=== PATIENT | male | born 1985 | race Caucasian/White ===

== ENCOUNTER 2017-12-09 21:51 | Emergency (ER) | payer SELFPAY ==
[~2017-12-09] VITALS: Ht 175.3 cm; Wt 126.5 kg
[2017-12-09 22:19] VITALS: Ht 175.3 cm; Wt 126.5 kg
[2017-12-10 00:44] VITALS: BP 137/94
== END 2017-12-10 00:44 | disposition home or self-care (01) ==
LOC: ED 21:51
DX: L60.0 Ingrowing nail (principal)
CPT/HCPCS: J2001

== ENCOUNTER 2019-08-16 01:17 | Emergency (ER) | payer SELFPAY ==
[~2019-08-16] VITALS: Ht 175.3 cm; Wt 125.9 kg
[2019-08-16 01:24] VITALS: Ht 175.3 cm; Wt 125.9 kg
[2019-08-16 05:12] VITALS: BP 150/82
== END 2019-08-16 05:12 | disposition home or self-care (01) ==
LOC: ED 01:17
DX: J11.1 Influenza due to unidentified influenza virus with other respiratory manifestations (principal)
CPT/HCPCS: 87804; J7120

== ENCOUNTER 2020-06-10 02:52 | Inpatient (IN) | payer SELFPAY ==
[~2020-06-10] VITALS: Ht 175.3 cm; Wt 127.9 kg
[2020-06-10 03:01] VITALS: Ht 175.3 cm; Wt 127.9 kg
[2020-06-10 04:00] LABS: BASOPHIL % 1.4 % (0-2); PLATELET COUNT 256 x10^3mcL (130-400); RED CELL DISTRIBUTION WIDTH 13.1 % (11.5-14.5)
[2020-06-10 04:09] LABS: ALBUMIN 3.8 g/dL (3.4-5.0); ALKALINE PHOSPHATASE 154 U/L (46-116); ALT/SGPT 174 U/L (16-63); AST/SGOT 108 U/L (15-37); BILIRUBIN TOTAL 1.09 mg/dL (0.20-1.00); CALCIUM 8.8 mg/dL (8.5-10.1); CARBON DIOXIDE 25.6 mmol/L (21-32); CHLORIDE SERUM 101 mmol/L (98-107); GFR1 > 60 mL/min; POTASSIUM SERUM 3.9 mmol/L (3.5-5.1); SODIUM SERUM 130 mmol/L (136-145); TOTAL PROTEIN, SERUM 7.8 g/dL (6.4-8.2)
[2020-06-10 04:18] LABS: GLUCOSE SERUM 484 mg/dL (74-106)
--- NOTE | 2020-06-10 04:44 | NUR ---
FIRST ENCOUNTER WITH PT. WITH C/O " MY PENIS HAS REDNESS AND I HAVE GOING TO BATHROOM A LOT AND I AM THIRSTY AND HVE DRY MOUTH."ACCU- [id number]
--- NOTE | 2020-06-10 05:30 | NUR ---
PT. RESTING ,VSS, NO S/S OF ACUTE DISTRESS.
[2020-06-10 06:14] LABS: microscopic required? NO
--- NOTE | 2020-06-10 06:29 | NUR ---
NUBIA ( COVID) =NEGATIVE.
[2020-06-10 06:50] VITALS: BP 135/68
--- NOTE | 2020-06-10 06:54 | NUR ---
RECEIVED PT FROM ER VIA [facility] ACCOMPANIED BY THE ER STAFF. PT IS A/A/O X4. PAIN LEVEL ON THE PENILE AREA IS 5/10. DENIES NEED FOR PAIN MEDICATION THUS FAR. IV INTACT ON THE LAC INFUSING WITH NS AT 150 ML/HR. MADE PT COMFORTABLE. PLACED CALL LIGHT WITH IN REACH. WILL CONTINUE TO MONITOR.
[2020-06-10 07:01] LABS: UA SPECIFIC GRAVITY 1.015 (1.005-1.035); urine erythrocyte NEGATIVE (NEGATIVE)
--- NOTE | 2020-06-10 07:30 | NUR ---
PATIENT IS A&OX4, FOLLOWS COMMANDS AND COOEPRATES WELL. PATIENT IS MEDSURG, DENIES CHEST PAIN. PERIPHERAL PULSES PALPABLE W/ NO SIGNS OF EDEMA. LUNG SOUNDS CTA BILATERALLY, ON RA, OW SAT 98%, DENIES SOB. NORMOACTIVE BSX4, ABD SOFT AND ROUND, DENIES ABD PAIN. VOIDS USING THE RESTROOM, STATES PENILE PAIN WHEN URINATING, AND PENILE REDNESS SEEN UPON OBSERVATION. IV SITE IS CDI. PATIENT IS AMBULATORY. PATIENT REFUSES PAIN MEDICATIONS AT THIS TIME. WILL CHART PHOTO DOCUMENTATION OF PENILE REDNESS. WILL CONTINUE TO MONITOR PATIENT.
[2020-06-10 09:09] VITALS: BP 133/84
[2020-06-10 09:26] VITALS: BP 109/56
--- NOTE | 2020-06-10 12:20 | NUR ---
PATIENT IS CURRENTLY RESTING IN BED AND DENIES PAIN OR DISCOMFORT AT THIS TIME. ALL QUESTIONS AND CONCERNS AHVE BEEN ADDRESSED. WILL CONTINUE TO MONITOR.
[2020-06-10 13:24] VITALS: BP 122/73
--- NOTE | 2020-06-10 13:36 | NUR ---
Discount pharmacy card and list to low cost medical clinics given to patient.
[2020-06-10 16:58] VITALS: BP 132/82
[2020-06-10] MEDS ORDERED: ZES10 PO (17:16)
[2020-06-10] MEDS ORDERED: NIZC TOP (17:19)
[2020-06-10] MEDS ORDERED: FORTAMET1000 MG PO (17:20)
--- NOTE | 2020-06-10 18:21 | NUR ---
PATIENT IS CURRENTLY RESTING IN BED AT THIS TIME. ALL QUESTIONS AND CONCERNS HAVE BEEN ADDRESSED. WILL CONTINUE TO MONITOR PATIENT.
--- NOTE | 2020-06-10 19:42 | NUR ---
RECEIVED SHIFT REPORT FROM DAY LARY OJEDA. PT AWAKE, ALERT, ORIENTED, IN NAD. ABD US IN PROGRESS WITH TECH AT BEDSIDE. POC REGARDING D/C REVIEWED, RN WILL INFORM MD WHEN US IS COMPLETE TO CONFIRM D/C. PT DENIES ANY NEEDS/CONCERNS AT THIS TIME. SAFETY CHECKS COMPLETE, CALL NEFF WITHIN REACH.
--- NOTE | 2020-06-10 19:49 | NUR ---
RECEIVED CALL FROM DR. MAURICIO, PER , KENDRA TO D/C TO NOW THAT US IS COMPLETE. INFORMED PT DOES NOT HAVE BLOOD SUGAR TESTING SUPPLIES [id number]. STATES HE WILL ORDER GLUCOMETER, STRIPS, LANCETS FOR D/C. PT INOFRMED OF STATUS.
[2020-06-10] MEDS ORDERED: METER-CHECK1 EACH MC (19:50)
[2020-06-10] MEDS ORDERED: GLUCOSE TEST S1 EACH MC (19:50)
[2020-06-10] MEDS ORDERED: BLOOD LANCETS1 EACH TOP (19:50)
[2020-06-10 19:53] VITALS: BP 132/82
--- NOTE | 2020-06-10 20:26 | NUR ---
RN REVEIWED D/C PACKET INSTRUCTIONS WITH PT; INCLUDING D/C MEDS, APPOINTMENTS, ADMIT DX, TX. PT VERBALIZED UNDERSTANDING. DENIES HAVING GEORGINA QUESTIONS REGARDING D/C. LEFT AC PIV REMOVED, DRESSING PLACED. SITE BENIGN. VSS AT THIS TIME, ASSESSMENT WNL. PT D/C TO HOME IS BRP AWAITING WHEELCHAIR TO CAR.
== END 2020-06-10 20:40 | disposition home or self-care (01) | DRG 728 ==
LOC: ED 02:52 → MU 04:42
PROVIDERS: Emergency Medicine; ADMIT Family Medicine; ATTEND Family Medicine
DX: N48.1 Balanitis (principal); E87.1 Hypo-osmolality and hyponatremia; Z20.828 Contact with and (suspected) exposure to other viral communicable diseases; E11.65 Type 2 diabetes mellitus with hyperglycemia; R74.01 Elevation of levels of liver transaminase levels; I10 Essential (primary) hypertension; Z87.891 Personal history of nicotine dependence; Z83.3 Family history of diabetes mellitus; Z23 Encounter for immunization; Z79.899 Other long term (current) drug therapy
CPT/HCPCS: 36600; 82962; 87491; 87591; 90658; G0378; J1815; J7030; Q0092

== ENCOUNTER 2020-08-24 14:24 | Emergency (ER) | payer MEDICAID, SELFPAY ==
[~2020-08-24] VITALS: Ht 175.3 cm; Wt 122.5 kg
[~2020-08-24 14:24] MED LIST: BLOOD LANCETS1 EACH TOP; FORTAMET1000 MG PO; GLUCOSE TEST S1 EACH MC; METER-CHECK1 EACH MC; NIZC TOP; ZES10 PO
[2020-08-24 14:26] VITALS: Ht 175.3 cm; Wt 122.5 kg
[2020-08-24 18:35] VITALS: BP 130/81
== END 2020-08-24 18:35 | disposition home or self-care (01) ==
LOC: ED 14:24
DX: U07.1 COVID-19 (principal)
CPT/HCPCS: U0003